=== PATIENT | male | born 1955 | race Caucasian/White ===

== ENCOUNTER 2018-11-03 14:54 | Emergency (ER) | payer OTHER, BC ==
[~2018-11-03] VITALS: Ht 177.8 cm; Wt 98.6 kg
[2018-11-03] MEDS ORDERED: LISI-538 PO (15:00)
--- NOTE | 2018-11-03 15:27 | REP ---
Clinical: Trauma/injury. Technique: AP and lateral views of the right forearm. Findings: No acute fracture dislocation. Skeletal structures, joint spaces, and surrounding soft tissues appear normal. No subcutaneous emphysema or radiodense foreign body. Impression: No acute fracture or dislocation. Electronically Signed by Quinton Jackson MD 11/03/2018 03:18 P
[2018-11-03 16:10] LABS: AMPHETAMINES LEVEL URINE NEGATIVE (NEGATIVE); BARBITURATES URINE NEGATIVE (NEGATIVE); BENZODIAZEPINES URINE NEGATIVE (NEGATIVE); CANNABINOIDS URINE NEGATIVE (NEGATIVE); COCAINE METABOLITE URINE NEGATIVE (NEGATIVE); METHADONE URINE NEGATIVE (NEGATIVE); OPIATES URINE NEGATIVE (NEGATIVE); PHENCYCLIDINE URINE NEGATIVE (NEGATIVE)
[2018-11-03 16:19] VITALS: BP 126/84
== END 2018-11-03 16:24 | disposition home or self-care (01) ==
LOC: M ED 14:54
DX: S50.11XA Contusion of right forearm, initial encounter (principal); W22.8XXA Striking against or struck by other objects, initial encounter; Y92.59 Other trade areas as the place of occurrence of the external cause; Y99.0 Civilian activity done for income or pay; Z79.899 Other long term (current) drug therapy

== ENCOUNTER → 2021-02-20 | Outpatient (CLI) | payer BC ==
[~2021-02-20] MED LIST: LISI20TA33 PO
--- NOTE | 2021-02-20 11:15 | REP ---
INDICATION: CKD 3A, CYST OF KIDNEY. COMPARISON: None. TECHNIQUE: Urinary tract sonography. FINDINGS: Scanning of the level of the urinary bladder shows smooth renal contours. The prostate is appears prominent measuring 5.2 x 3.8 x 4.2 cm, 43 mL calculated volume. The bladder base is somewhat elevated.. Renal cortical echogenicity pattern is normal bilaterally and contours are smooth. There is no evidence of hydronephrosis on either side. There are 2 cysts in the lower pole the right kidney and 1 in the lower pole the left kidney. No mass is seen. The lower pole cyst on the left measures 0.9 cm. The 2 cysts in the lower pole the right kidney measures 2.1 and 1.4 cm in greatest diameter respectively.. The right kidney measures 10.3 x 5.5 x 6.1 cm. Left renal dimensions are 11.3 x 5.1 x 5.5 cm. IMPRESSION: Enlarged prostate. Small bilateral renal cortical cysts. No evidence of hydronephrosis.. <Electronically signed by Jose Hammonds > 02/20/21 1111
== END ==
LOC: M RAD 09:00
PROVIDERS: ATTEND Internal Medicine Nephrology
DX: N18.31 Chronic kidney disease, stage 3a (principal); N28.1 Cyst of kidney, acquired

== ENCOUNTER → 2021-09-22 | Outpatient (REF) | payer BC | LOC: M LAB REF 12:46 | PROVIDERS: ATTEND Nurse Practitioner Family | DX: N40.1 Benign prostatic hyperplasia with lower urinary tract symptoms (principal) ==

== ENCOUNTER → 2022-09-07 | Outpatient (CLI) | payer BC | LOC: M RAD 15:36 | PROVIDERS: ATTEND Nurse Practitioner Family | DX: R60.0 Localized edema (principal) ==

== ENCOUNTER → 2022-09-28 | Outpatient (CLI) | payer BC, MEDICARE | LOC: M RAD 15:57 | PROVIDERS: ATTEND Nurse Practitioner Family | DX: R60.0 Localized edema (principal) ==

== ENCOUNTER 2023-08-30 10:18 | Emergency (ER) | payer BC, MEDICARE ==
[~2023-08-30] VITALS: Ht 177.8 cm; Wt 104.6 kg
[2023-08-30] MEDS ORDERED: POTA10CA60 PO (10:35)
[2023-08-30] MEDS ORDERED: ATOR1TAB19 PO (10:35)
[2023-08-30] MEDS ORDERED: JANU25TA PO (10:35)
[2023-08-30] MEDS ORDERED: FURO20TA2 PO (10:35)
[2023-08-30] MEDS ORDERED: AMLO1TAB25 PO (10:35)
[2023-08-30 12:13] LABS: VENOUS BASE EXCESS 0.8 (-2.0-2.0); VENOUS HCO3 25.7 MMOL/L (23.0-27.0); VENOUS O2 SATURATION 82.9 % (60.0-80.0); VENOUS PARTIAL PRESSURE CO2 42.2 mmHg (38.0-50.0); VENOUS PARTIAL PRESSURE O2 47.4 mmHg (30.0-50.0); VENOUS PH 7.402 UNITS (7.330-7.430); VENOUS STANDARD HCO3 24.8 MMOL/L
[2023-08-30 12:19] LABS: BASO % 0.2 % (0.0-1.0); EOS # 0.1 10^3/uL (0.0-0.5); EOS % 0.4 % (0.0-3.0); HEMATOCRIT 35.3 % (42.0-52.0); HEMOGLOBIN 11.7 g/dl (13.5-17.5); LYMPH # 1.3 10^3/uL (1.5-5.0); LYMPH % 10.3 % (24.0-44.0); MEAN CORPUSCULAR HEMOGLOBIN 28.5 pg (27.0-33.0); MEAN CORPUSCULAR HGB CONC 33.1 g/dl (32.0-36.5); MEAN CORPUSCULAR VOLUME 85.9 fl (80.0-96.0); MONO # 1.4 10^3/uL (0.0-0.8); MONO % 10.9 % (2.0-8.0); NEUTROPHILS # 9.7 10^3/uL (1.5-8.5); NEUTROPHILS % 77.8 % (36.0-66.0); PLATELET COUNT, AUTOMATED 313 10^3/uL (150-450); RED BLOOD COUNT 4.11 10^6/uL (4.30-6.10); WHITE BLOOD COUNT 12.5 10^3/uL (4.0-10.0)
[2023-08-30 12:30] LABS: INR 1.22
[2023-08-30 12:31] LABS: APPEARANCE, URINE HAZY (CLEAR); BACTERIA, URINE AUTO 2+ (NEGATIVE); BILIRUBIN, URINE AUTO NEGATIVE (NEGATIVE); BLOOD, URINE BLOOD 1+ (NEGATIVE); COLOR, URINE YELLOW (YELLOW); GLUCOSE, URINE (UA) AUTO NEGATIVE (NEGATIVE); KETONE, URINE AUTO NEGATIVE (NEGATIVE); LEUKOCYTE ESTERASE, URINE AUTO 3+ (NEGATIVE); NITRITE, URINE AUTO NEGATIVE (NEGATIVE); PARTIAL THROMBOPLASTIN TIME 34.1 SECONDS (24.8-34.2); PROTEIN, URINE AUTO 2+ mg/dL (NEGATIVE); RBC, URINE AUTO 6 /HPF (0-3); SPECIFIC GRAVITY URINE AUTO 1.011 (1.002-1.035); SQUAMOUS EPITHELIAL CELL UR AU 0 /HPF (0-6); UROBILINOGEN, URINE AUTO 0.2 mg/dL (0.0-2.0); WBC, URINE AUTO 146 /HPF (0-3)
[2023-08-30 12:49] LABS: ALBUMIN 3.5 G/DL (3.2-5.2); BILIRUBIN,DIRECT 0.3 MG/DL (<0.4); BILIRUBIN,TOTAL 0.9 MG/DL (0.3-1.2); CALCIUM LEVEL 9.2 MG/DL (8.3-10.6); CREATININE FOR GFR 2.12 MG/DL (0.70-1.30); GLOMERULAR FILTRATION RATE 33.3 (>49); POTASSIUM SERUM 4.1 MMOL/L (3.5-5.1); TOTAL PROTEIN 7.9 G/DL (5.7-8.2)
[2023-08-30 12:57] LABS: RSV AMPLIFICATION NEGATIVE (NEGATIVE)
[2023-08-30 12:57] LABS: PROCALCITONIN 2.66 ng/ml
[2023-08-30] MEDS ORDERED: cefTRIAXone SOD 1 GM in D5W MINI-BAG PLUS 50 ML IV ONE (14:15)
[2023-08-30] MEDS ORDERED: NS 1,000 ML IV ONE (14:25)
[2023-08-30] MEDS ORDERED: MED REC IN PROGRESS XX SCH (16:35)
[2023-08-30] MEDS ORDERED: OMEG10002 PO (16:48)
[2023-08-30] MEDS ORDERED: VITA500C24 PO (16:50)
[2023-08-30] MEDS ORDERED: VITA200012 PO (16:51)
[2023-08-30] MEDS ORDERED: HOME MED LIST COMPLETE! XX SCH (16:55)
[2023-08-30] MEDS ORDERED: GLUCOSE 4GM CHEW TABLET PO PRN (22:10)
[2023-08-30] MEDS ORDERED: GLUCAGON INJ 1MG VIAL SC PRN (22:10)
[2023-08-30] MEDS ORDERED: DEXTROSE 50% 50ML SYRINGE IV PRN (22:10)
[2023-08-30 22:39] VITALS: BP 146/77; TEMP 98.4; O2SAT 93
[2023-08-31] MEDS ORDERED: INSULIN LISPRO (NovoLOG) PER UNIT SC SCH
[2023-08-31] MEDS ORDERED: ATORVASTATIN 10 MG TAB PO SCH (09:00)
== END 2023-08-30 22:47 | disposition short-term general hospital (02) ==
LOC: M ED 10:18
DX: N30.01 Acute cystitis with hematuria (principal); N13.2 Hydronephrosis with renal and ureteral calculous obstruction; N17.9 Acute kidney failure, unspecified; I10 Essential (primary) hypertension; E11.9 Type 2 diabetes mellitus without complications; Z79.4 Long term (current) use of insulin; Z79.811 Long term (current) use of aromatase inhibitors; Z79.02 Long term (current) use of antithrombotics/antiplatelets; Z79.899 Other long term (current) drug therapy
CPT/HCPCS: 74176; 80048; 80076; 81001; 82150; 82803; 83605; 84145; 85025; 85610; 85730; 86140; 87040; 87088; 87186; 87631; 93041; 94760; 96365; 96366; 99285; J0696